=== PATIENT | female | born 1930 | race Caucasian/White ===

== ENCOUNTER 2017-01-30 09:56 | Emergency (ER) | payer OTHER, MEDICAID ==
[~2017-01-30] VITALS: Ht 157.5 cm; Wt 53.1 kg
[~2017-01-30 09:56] MED LIST: BACL10TA PO; CELE100C PO; DEXL30CA3 PO; DIGO125T79 PO; DILT60TA3 PO; ESOM20CA PO; GLIM2TAB2 PO; GLIP5TAB13 PO; GLU500 PO; MAGN64TA11 PO; RIVA20TA PO; SITA100T7 PO
[2017-01-30 10:04] VITALS: BP_SYST 159
[2017-01-30 10:53] LABS: BASOPHILS % (AUTO) 0.6 % (0.0-2.0); EOSINOPHILS # (AUTO) 0.2 K/uL (0.0-0.4); EOSINOPHILS % (AUTO) 2.5 % (0.0-4.0); HEMOGLOBIN 11.9 g/dL (12.0-16.0); LYMPHOCYTES # (AUTO) 1.4 K/uL (1.0-5.5); LYMPHOCYTES % (AUTO) 21.6 % (20.5-51.5); MEAN CORPUSCULAR HEMOGLOBIN 28 pg (27-31); MEAN CORPUSCULAR HGB CONC 32 % (32-36); MEAN CORPUSCULAR VOLUME 87 fL (79.0-98.0); MONOCYTES # (AUTO) 0.6 K/uL (0.0-1.0); MONOCYTES % (AUTO) 9.2 % (1.7-9.3); NEUTROPHILS # (AUTO) 4.4 K/uL (1.8-7.7); NEUTROPHILS % (AUTO) 66.1 % (40.0-70.0); PLATELET COUNT (AUTO) 322 K/uL (130-430); RED BLOOD CELL COUNT(AUTO) 4.24 MIL/uL (4.2-6.2); RED CELL DISTRIBUTION WIDTH 12.3 % (9.0-15.0); WHITE BLOOD COUNT (AUTO) 6.6 K/uL (4.8-10.8)
[2017-01-30 11:04] LABS: ANION GAP 6 (5-15); CALCIUM 9.5 mg/dL (8.4-11.0); CHLORIDE 103 mmol/L (98-107); CREATININE 1.03 mg/dL (0.55-1.30); GLUCOSE 122 mg/dL (70-99); INR 1.1 (0.8-1.2); POTASSIUM 3.9 mmol/L (3.5-5.1); PROTHROMBIN TIME 11.6 SECS (9.5-12.5); SODIUM SERUM 139 mmol/L (136-145); UREA NITROGEN, BLOOD 16 mg/dL (8-21)
[2017-01-30 11:08] LABS: ALANINE AMINOTRANSFERASE 26 U/L (12-78); ALBUMIN 3.7 g/dL (3.4-4.8); ASPARTATE AMINOTRANSFERASE 21 U/L (10-37); TOTAL BILIRUBIN 0.3 mg/dL (0.0-1.0)
[2017-01-30 11:10] LABS: ALCOHOL, BLOOD < 3 mg/dL (<10)
[2017-01-30 11:12] LABS: BILIRUBIN,URINE NEGATIVE (NEGATIVE); CLARITY/URINE CLEAR (CLEAR); COLOR,URINE YELLOW (YELLOW); GLUCOSE,URINE NEGATIVE (NEGATIVE); KETONES,URINE NEGATIVE (NEGATIVE); LEUKOCYTE ESTERASE ,URINE NEGATIVE (NEGATIVE); NITRITE, URINE NEGATIVE (NEGATIVE); PROTEIN URINE NEGATIVE (NEGATIVE); UROBILINOGEN,URINE 0.2 (0.2-1.0)
[2017-01-30 11:13] LABS: BLOOD, URINE TRACE (NEGATIVE)
[2017-01-30 11:23] LABS: BARBITURATE, URINE NEGATIVE (NEG <=200); BENZODIAZEPINE, URINE NEGATIVE (NEG <=150); CANNABINOID, URINE NEGATIVE (NEG <=50); COCAINE, URINE NEGATIVE (NEG <=150); METHAMPHETAMINES SCREEN,URINE NEGATIVE (NEG <=500); URINE AMPHETAMINE NEGATIVE (NEG <=500); URINE METHADONE NEGATIVE (NEG <=200)
[2017-01-30 11:24] LABS: BACTERIA,URINE None Seen /HPF (None Seen); OPIATE, URINE NEGATIVE (NEG <=100); PHENCYCLIDINE SCREEN,URINE NEGATIVE (NEG <=25); UR TRICYCLIC ANTIDEPRESSANTS NEGATIVE (NEG <=300); URINE OXYCODONE SCREEN NEGATIVE (NEG <=100); URINE PROPOXYPHENE SCREEN NEGATIVE (NEG <=300); WBC,URINE NONE SEEN /HPF (0-3)
[2017-01-30 12:17] VITALS: BP_SYST 140
== END 2017-01-30 12:17 | disposition home or self-care (01) ==
LOC: SED 09:56
DX: F41.9 Anxiety disorder, unspecified (principal); I10 Essential (primary) hypertension; K21.9 Gastro-esophageal reflux disease without esophagitis; E11.9 Type 2 diabetes mellitus without complications; Z79.899 Other long term (current) drug therapy
CPT/HCPCS: 36415; 71010; 74000; 80053; 80307; 81000; 82140; 82962; 83605; 83880; 84439; 84484; 85025; 85610; 87040; 93005; 99285; G0482

== ENCOUNTER 2019-01-27 19:43 | Emergency (ER) | payer OTHER, MEDICAID ==
[~2019-01-27] VITALS: Ht 175.3 cm; Wt 55.3 kg
[~2019-01-27 19:43] MED LIST changes: -MAGN64TA11 PO; +SITA100T11 PO; -SITA100T7 PO; +SLOW-MAG64 M1 PO
[2019-01-27 19:50] VITALS: BP_SYST 115
--- NOTE | 2019-01-27 20:56 | NUR ---
Pt BIB daughter with c/o left foot and ankle pain and swelling since this morning upon awakening. Pt denies recent injury or trauma to foot. No obvious deformity noted.
--- NOTE | 2019-01-27 20:56 | NUR ---
Kusum french in [facility] - 01/27/19 at 2056 by [email or web address] Pt wheeled to bed 1 for evaluation
--- NOTE | 2019-01-27 20:56 | NUR ---
Pt wheeled to bed 1 for evaluation
--- NOTE | 2019-01-27 21:23 | NUR ---
Dr. Claudio at bedside.
--- NOTE | 2019-01-27 21:50 | NUR ---
Lab at bedside.
[2019-01-27 22:14] LABS: BASOPHILS % (AUTO) 0.2 % (0.0-2.0); EOSINOPHILS # (AUTO) 0.1 K/uL (0.0-0.4); EOSINOPHILS % (AUTO) 1.1 % (0.0-4.0); HEMATOCRIT 32.4 % (36-48); HEMOGLOBIN 10.8 g/dL (12.0-16.0); LYMPHOCYTES % (AUTO) 24.3 % (20.5-51.5); MEAN CORPUSCULAR HEMOGLOBIN 30 pg (27-31); MEAN CORPUSCULAR HGB CONC 33 % (32-36); MEAN CORPUSCULAR VOLUME 89 fL (79.0-98.0); MONOCYTES # (AUTO) 1.3 K/uL (0.0-1.0); MONOCYTES % (AUTO) 16.5 % (1.7-9.3); NEUTROPHILS # (AUTO) 4.7 K/uL (1.8-7.7); NEUTROPHILS % (AUTO) 57.9 % (40.0-70.0); PLATELET COUNT (AUTO) 250 K/uL (130-430); RED BLOOD CELL COUNT(AUTO) 3.64 MIL/uL (4.2-6.2); RED CELL DISTRIBUTION WIDTH 14.7 % (9.0-15.0); WHITE BLOOD COUNT (AUTO) 8.1 K/uL (4.8-10.8)
[2019-01-27 22:21] LABS: ALANINE AMINOTRANSFERASE 16 U/L (12-78); ALBUMIN 3.3 g/dL (3.4-4.8); ANION GAP 1 (5-15); ASPARTATE AMINOTRANSFERASE 14 U/L (10-37); CALCIUM 8.9 mg/dL (8.4-11.0); CHLORIDE 104 mmol/L (98-107); GLUCOSE 194 mg/dL (70-99); SODIUM SERUM 137 mmol/L (136-145); TOTAL BILIRUBIN 0.3 mg/dL (0.0-1.0); UREA NITROGEN, BLOOD 21 mg/dL (8-21)
[2019-01-27 23:14] VITALS: BP_SYST 125
--- NOTE | 2019-01-27 23:14 | NUR ---
Patient given written and verbal discharge instructions and verbalizes understanding. ER MD discussed with patient the results and treatment provided. Patient in stable condition. ID arm band removed. Rx of Ibuprofen given. Patient educated on pain management and to follow up with PMD. Pain Scale 1/10. Opportunity for questions provided and answered. Medication side effect fact sheet provided.
== END 2019-01-27 23:14 | disposition home or self-care (01) ==
LOC: SED 19:43
DX: S93.402A Sprain of unspecified ligament of left ankle, initial encounter (principal); I48.91 Unspecified atrial fibrillation; K21.9 Gastro-esophageal reflux disease without esophagitis; E11.9 Type 2 diabetes mellitus without complications; I10 Essential (primary) hypertension; Z79.899 Other long term (current) drug therapy
CPT/HCPCS: 36415; 80053; 85025; 93971; 99284

== ENCOUNTER 2019-03-16 06:44 | Inpatient (IN) | payer OTHER, MEDICAID ==
[~2019-03-16] VITALS: Ht 157.5 cm; Wt 54.9 kg
[2019-03-16 06:50] VITALS: BP_SYST 139
--- NOTE | 2019-03-16 06:58 | NUR ---
Patient to ER bed 7 to gown for evaluation. Side rails up. Report given to DAYSHIFT .
--- NOTE | 2019-03-16 07:24 | NUR ---
PATIENT CAME IN COMPLAINING OF PAIN IN RIGHT GROIN THAT STARTED ABOUT 0230 THIS MORNING WHEN PT WENT TO USE RESTROOM. PT COMPLAINING OF 10/10 PAIN BUT UNABLE TO DECRIBE IT. PT STATES IT RADIATES TO BACK AND CHEST. PT STATES IT HAS BEEN PROGRESSIVLY BEEN GETTING WORST SINCE 0230 AND WORST WHEN SHE MOVES. PT DENIES TRAUMA. PT DENIES TAKING ANY MEDICATION TODAY. PT ALERT AND ORIENTED X4. PT DENIES SOB. DAUGHTER AT BEDSIDE. WILL CONTINUE TO MONITOR.
--- NOTE | 2019-03-16 07:55 | NUR ---
ER Dr. BETANCOURT at bedside examining patient.
[2019-03-16] MEDS ORDERED: MORPHINE 2 MG/ML INJ. SYRINGE IVP ONE (08:15)
[2019-03-16] MEDS ORDERED: NS 500 ML IV ONE (08:15)
--- NOTE | 2019-03-16 08:15 | NUR ---
# 20 gauge angiocath placed to LEFT AC. Use of asceptic technique. Opsite placed over site. Blood return noted. Blood for lab drawn from site. Flushed with 10 cc of normal saline. No evidence of infiltration noted. Patient tolerated well.
--- NOTE | 2019-03-16 08:20 | NUR ---
X RAY AT BEDSIDE.
[2019-03-16 08:34] LABS: BASOPHILS % (AUTO) 0.3 % (0.0-2.0); EOSINOPHILS # (AUTO) 0.1 K/uL (0.0-0.4); EOSINOPHILS % (AUTO) 0.9 % (0.0-4.0); HEMATOCRIT 34.7 % (36-48); HEMOGLOBIN 11.5 g/dL (12.0-16.0); LYMPHOCYTES # (AUTO) 1.2 K/uL (1.0-5.5); MEAN CORPUSCULAR HEMOGLOBIN 29 pg (27-31); MEAN CORPUSCULAR HGB CONC 33 % (32-36); MEAN CORPUSCULAR VOLUME 88 fL (79.0-98.0); MONOCYTES # (AUTO) 1.3 K/uL (0.0-1.0); MONOCYTES % (AUTO) 10.5 % (1.7-9.3); NEUTROPHILS # (AUTO) 9.5 K/uL (1.8-7.7); NEUTROPHILS % (AUTO) 78.3 % (40.0-70.0); PLATELET COUNT (AUTO) 292 K/uL (130-430); RED BLOOD CELL COUNT(AUTO) 3.93 MIL/uL (4.2-6.2); RED CELL DISTRIBUTION WIDTH 14.3 % (9.0-15.0); WHITE BLOOD COUNT (AUTO) 12.2 K/uL (4.8-10.8)
--- NOTE | 2019-03-16 08:34 | NUR ---
PT LEAVING TO CT VIA GURNEY IN STABLE CONDITION.
[2019-03-16 08:50] LABS: ANION GAP 6 (5-15); CALCIUM 9.2 mg/dL (8.4-11.0); CHLORIDE 102 mmol/L (98-107); CREATININE 0.81 mg/dL (0.55-1.30); GLUCOSE 197 mg/dL (70-99); POTASSIUM 4.7 mmol/L (3.5-5.1); SODIUM SERUM 136 mmol/L (136-145); UREA NITROGEN, BLOOD 19 mg/dL (8-21)
--- NOTE | 2019-03-16 08:51 | NUR ---
PT BACK FROM CT IN STABLE CONDITION.
[2019-03-16 08:52] LABS: INR 1.2 (0.8-1.2); PROTHROMBIN TIME 12.2 SECS (9.5-12.5)
[2019-03-16 08:56] LABS: ALANINE AMINOTRANSFERASE 18 U/L (12-78); ALBUMIN 3.9 g/dL (3.4-4.8); ASPARTATE AMINOTRANSFERASE 35 U/L (10-37); TOTAL BILIRUBIN 0.6 mg/dL (0.0-1.0)
--- NOTE | 2019-03-16 09:40 | NUR ---
PT STATES PAIN DOING BETTER AFTER PAIN MEDS.
[2019-03-16 10:23] LABS: BILIRUBIN,URINE NEGATIVE (NEGATIVE); BLOOD, URINE 1+ (NEGATIVE); CLARITY/URINE CLEAR (CLEAR); COLOR,URINE YELLOW (YELLOW); GLUCOSE,URINE TRACE (NEGATIVE); KETONES,URINE NEGATIVE (NEGATIVE); LEUKOCYTE ESTERASE ,URINE NEGATIVE (NEGATIVE); NITRITE, URINE NEGATIVE (NEGATIVE); PROTEIN URINE 1+ (NEGATIVE); UROBILINOGEN,URINE 0.2 (0.2-1.0)
[2019-03-16 10:27] LABS: BACTERIA,URINE FEW /HPF (None Seen); WBC,URINE 0-3 /HPF (0-3)
[2019-03-16] MEDS ORDERED: INSULIN LISPRO SLIDING SCALE 100 UNITS/ML VIAL (humaLOG) SUBCUT PRN (11:45)
[2019-03-16] MEDS ORDERED: GLUCOSE 15 GM GEL (in 37.5 GM TUBE) PO PRN (11:45)
[2019-03-16] MEDS ORDERED: D5W 1,000 ML IV PRN (11:45)
[2019-03-16] MEDS ORDERED: DEXTROSE 50%-WATER 50 ML DISP.SYRIN IVP PRN (11:45)
--- NOTE | 2019-03-16 11:45 | NUR ---
Patient will be admitted to care of DR. STRINGER. Admitted to TELE unit. Belongings list completed. Summary report printed. Report will be given at bedside. Waiting for tele bed.
[2019-03-16] MEDS ORDERED: NITR0.4T47 SL (11:48)
[2019-03-16] MEDS ORDERED: LIRA0.6P SQ (11:48)
[2019-03-16] MEDS ORDERED: ESCI5TAB12 PO (11:48)
[2019-03-16] MEDS ORDERED: LIP10 PO (11:48)
[2019-03-16] MEDS ORDERED: BACL10TA PO (11:48)
--- NOTE | 2019-03-16 11:48 | NUR ---
Medication reconciliation completed with information provided by DAUGHTER. Any prior medication reconciliation on file was reviewed and corrected.
--- NOTE | 2019-03-16 12:12 | NUR ---
PT HAD TO USE REST ROOM. PT ASSISTED WITH BED AVILA. PT POSITIONED FOR COMFORT. WILL CONTINUE TO MONITOR.
--- NOTE | 2019-03-16 12:30 | NUR ---
SPOKE TO PT AND DAUGHTER ABOUT END OF LIFE CARE. DAUGHTER STATES PT FULL CODE FOR NOW AND THEY WILL HAVE DISCCUSION ABOUT IT LATER.
--- NOTE | 2019-03-16 12:35 | NUR ---
Transfer to TELE via ACLS protocol. Licensed nurse present. IV present no signs or symptoms of infiltration.
--- NOTE | 2019-03-16 12:42 | NUR ---
REPORT GIVEN TO NAHUM RN AT BEDSIDE.
[2019-03-16 12:44] VITALS: BP_SYST 147
--- NOTE | 2019-03-16 12:44 | NUR ---
ADMISSION NOTE Received patient from ER via woo, received report from JENNIFER SALAZAR. Patient admitted with diagnosis of REFRACTORY RIGHT HIP PAIN, A FIB, DIABETES. Patient oriented to hospital routine, call light, toileting and safety-patient verbalized understanding.
[2019-03-16] MEDS ORDERED: HYDROcodone/ACETAMIN 5-325 MG TAB (NORCO/ VICODIN) PO PRN (13:00)
--- NOTE | 2019-03-16 13:04 | NUR ---
Ortho consult called: for Dr. Angel, regarding right hip pain, ordered by Dr. Sanchez, spoke with Kell.
[2019-03-16] MEDS ORDERED: ONDANSETRON HCL 4 MG/2 ML VIAL IVP PRN (13:15)
[2019-03-16] MEDS ORDERED: DIGOXIN 0.125 MG TABLET PO ONE (13:15)
[2019-03-16] MEDS ORDERED: PANTOPRAZOLE SODIUM 40 MG TAB PO ONE (13:15)
[2019-03-16] MEDS ORDERED: BACLOFEN 10 MG TABLET PO ONE (13:15)
[2019-03-16] MEDS ORDERED: DILTIAZEM HCL 240 MG CAP.SR.24H PO ONE (13:30)
[2019-03-16] MEDS ORDERED: RIVAROXABAN 10 MG TABLET PO ONE (13:30)
[2019-03-16] MEDS: MORPHINE 2 MG/ML INJ. SYRINGE IVP PRN ×2 (13:37→22:18)
--- NOTE | 2019-03-16 13:52 | NUR ---
continuation of care Patient is awake and alert sitting up in bed. Patients daughter is at bed side. Patient complains of pain, medicated per order. Patients scheduled medication also given as ordered. Patient and family educated on side effects and to use call light for assistance. Call light is with patient. patients breathing is equal and nonlabored. Patient has no other needs at this time. will continue to monitor. Patient given lunch tray.
--- NOTE | 2019-03-16 14:49 | NUR ---
VOID PATIENT PLACED ON AND OFF BEDPAN. PATIENT VOIDED MODERATE AMOUNT, LIGHT YELLOW URINE. PATIENT'S DAUGHTER STATES SHE IS GOING TO RUN HOME GRAB A COUPLE THINGS AND EAT AND WILL RETURN LATER TODAY. STATES PATIENT HAS CELL PHONE WE CAN CALL DAUGHTER IF PATIENT NEEDS ANYTHING. PATIENT HAS CALL LIGHT WITH HER EDUCATED TO USE FOR ASSISTANCE. PATIENT HAS ALL SAFETY PRECAUTIONS IN PLACE.NO OTHER NEEDS AT THIS TIME WILL CONTINUE TO MONITOR.
[2019-03-16 16:21] VITALS: BP_SYST 145
--- NOTE | 2019-03-16 16:29 | NUR ---
vital signs Patient is awake and alert, sitting up in bed no signs of any distress, breathing is equal and non labored. Patient has family at bed side. Patient has all safety precautions in place. call light is with patient no other needs at this time. vital sings done.
[2019-03-16] MEDS: metFORMIN HCL 500 MG TABLET PO SCH (17:46)
[2019-03-16] MEDS: CITALOPRAM HYDROBROMIDE 20 MG TABLET PO SCH (17:51)
[2019-03-16] MEDS: INSULIN LISPRO SLIDING SCALE 100 UNITS/ML VIAL (humaLOG) SUBCUT PRN ×2 (17:53→20:13)
[2019-03-16] MEDS ORDERED: NON-FORMULARY MEDICATION (Escitalopram Oxalate 5 MG) PO SCH (18:00)
--- NOTE | 2019-03-16 18:43 | NUR ---
rn closing note Patient is awake and alert laying in bed no signs of any distress, breathing is equal and non labored. Patient just finished having XR done. Patient has family at bed side. is at bedside. Patient has no complaints at this time. All safety precautions in place.Call light is with patient. educated patient and family to use call light for assistance.
--- NOTE | 2019-03-16 19:50 | NUR ---
PM SHIFT ASSESSMENT Received patient lying in bed, aox3, on room air, denies any pain or discomfort at this time, family at bedside, plan of care discussed with patient and family, all verbalized understanding, compliant, oriented to use call light for nurse assistance, fall and safety measures in place.
[2019-03-16 20:06] VITALS: BP_SYST 163
[2019-03-16] MEDS: BACLOFEN 10 MG TABLET PO SCH (20:12)
[2019-03-16] MEDS: ACETAMINOPHEN 325 MG TABLET PO PRN (20:12)
--- NOTE | 2019-03-16 21:21 | NUR ---
MED PASS Patient has slight temperature, cooling measures provided, tylenol 650 mg po given, will recheck temp, blood sugar check this pm of 272, covered with insulin per md sliding scale. Patient assisted with bedpan, hygiene care provided, daughter at bedside.
--- NOTE | 2019-03-16 22:11 | NUR ---
RN ROUNDS Patient awake, denies any pain or discomfort at this time, eating HS snack, rechecked temperature, wnl, daughter remains at bedside, call light within reach, safety measures in place, will monitor.
--- NOTE | 2019-03-16 22:45 | NUR ---
PAIN Patient c/o of right leg pain, medicated with morphine 1 mg IVP for pain management, educated on side effects and fall precautions, patient and daughter verbalized understanding, vital signs stable, call light within reach, will reassess patient's pain level shortly.
--- NOTE | 2019-03-17 00:17 | NUR ---
RN ROUNDS Patient resting quietly in bed, breathing is even and unlabored, vital signs stable, daughter remains at bedside, call light within reach, will monitor.
[2019-03-17 00:52] VITALS: BP_SYST 134
--- NOTE | 2019-03-17 02:17 | NUR ---
RN ROUNDS Patient asleep, breathing is even and unlabored, daughter remains at bedside, saftey precautions in place, call light within reach, will monitor.
--- NOTE | 2019-03-17 04:05 | NUR ---
RN ROUNDS Patient continues to sleep, breathing is even and unlabored, daughter remains at bedside, safety precautions in place, call light within reach, will monitor.
[2019-03-17] MEDS: INSULIN LISPRO SLIDING SCALE 100 UNITS/ML VIAL (humaLOG) SUBCUT PRN ×4 (06:17→20:55)
[2019-03-17] MEDS: MORPHINE 2 MG/ML INJ. SYRINGE IVP PRN (06:28)
--- NOTE | 2019-03-17 06:35 | NUR ---
RN ROUNDS Patient awake, c/o of pain to right leg, medicated with morphine 1 mg IVP for pain management, reinforced safety precautions, repositioned for comfort, blood sugar check this am of 182, covered with insulin per md sliding scale, needs attended to, fall and safety measures maintained, will continue to monitor until report given to am nurse.
[2019-03-17 08:00] VITALS: BP_SYST 126
--- NOTE | 2019-03-17 08:00 | NUR ---
PT IS AWAKE, ALERT AND ORIENTED X4, IN RA, NO SOB, AFIB ON MARKET RESEARCHER, COMPLAINED ON INTERMITTENT PAIN WHEN MOVING RIGHT LEG, WEAKNESS ON BILATERAL LOWER LEGS, IV SL ON LAC, IV INTACT AND PATENT, PT'S DTR AT BEDSIDE, REVIEWED PLAN OF CARE, CALL LIGHT WITHIN REACH
[2019-03-17] MEDS: metFORMIN HCL 500 MG TABLET PO SCH ×2 (08:10→17:25)
[2019-03-17] MEDS: DIGOXIN 0.125 MG TABLET PO SCH (09:10)
[2019-03-17] MEDS: BACLOFEN 10 MG TABLET PO SCH ×2 (09:10→20:53)
[2019-03-17] MEDS: PANTOPRAZOLE SODIUM 40 MG TAB PO SCH (09:12)
[2019-03-17] MEDS: DILTIAZEM HCL 240 MG CAP.SR.24H PO SCH (09:12)
--- NOTE | 2019-03-17 10:06 | NUR ---
Nutrition Update Jose Scale 18 noted. Pt admitted for refractory R hip pain, atr fibr. Diet: [facility] BMI: 22.1 kg/m2 RD to follow per nutrition care standards.
[2019-03-17] MEDS: RIVAROXABAN 20 MG TABLET PO SCH (10:07)
--- NOTE | 2019-03-17 10:30 | NUR ---
RN RNDS ASSISTED PT TO BATHROOM, PT USED WALKER ON AMBULATION, WEAKNESS ON BILATERAL LOWER LEGS, GAIT NOT STABLE.
--- NOTE | 2019-03-17 12:00 | NUR ---
PT IS STABLE, NO SOB, PT'S 3RD SON ON BEDSIDE, CALL LIGHT WITHIN REACH
[2019-03-17 12:25] VITALS: BP_SYST 137
[2019-03-17 16:30] VITALS: BP_SYST 131
[2019-03-17] MEDS: CITALOPRAM HYDROBROMIDE 20 MG TABLET PO SCH (16:59)
[2019-03-17] MEDS ORDERED: MILK OF MAGNESIA 30 ML UDC PO ONE (17:15)
--- NOTE | 2019-03-17 17:30 | NUR ---
PT'S DTR ASSISTED PT TO USE BSC TO HAVE A BOWEL MOVEMENT, WILL CONTINUE TO MONITOR
--- NOTE | 2019-03-17 18:47 | NUR ---
Paged Dr. Sanchez s/w Calli
--- NOTE | 2019-03-17 19:20 | NUR ---
OPENING NOTES Received patient from AM nurse. Patient alert, oriented, daughter at the bedside. No signs of respiratory distress. No SOB. Denies pain and discomfort at this time. Bed is locked and lowest position. Safety Precaution in place. Patient and Daughter educated on proper use of call light, encourage to use call light when needed for assistance, patient and daughter verbalized understanding, and demonstrated back proper use of call light. Bedside commode in place. Patient refused bed alarm at this time, patient and patient's daughter educated on its purpose and its benefits, but still refused, will continue to encourage throughout shift. Patient's daughter stated that she will be at bedside with the patient all night.
[2019-03-17 20:15] VITALS: BP_SYST 123
--- NOTE | 2019-03-17 20:52 | NUR ---
BS CHECK BS 281. Humalog 6 units is given per MD order. Patients daughter at the bed side. Needs met and attended. Patient has no signs of respiratory distress. Will continue to monitor
[2019-03-17] MEDS: DOCUSATE SODIUM 250 MG CAPSULE PO SCH (20:53)
--- NOTE | 2019-03-18 | NUR ---
RN ROUNDS Patient is asleep, daughter sleeping in the bed side. Patient has no signs of respiratory distress. Will continue to monitor.
[2019-03-18 00:33] VITALS: BP_SYST 148
--- NOTE | 2019-03-18 02:00 | NUR ---
RN ROUNDS Patient is asleep, daughter sleeping in the bed side. Patient has no signs of respiratory distress. NO SOB, no signs of discomfort at this time. Will continue to monitor.
--- NOTE | 2019-03-18 04:01 | NUR ---
RN ROUNDS Patient is asleep, daughter sleeping in the bed side. Patient has no signs of respiratory distress. NO SOB, no signs of discomfort at this time. Bed in locked and lowest position. Will continue to monitor.
[2019-03-18] MEDS: MORPHINE 2 MG/ML INJ. SYRINGE IVP PRN (06:14)
[2019-03-18] MEDS: INSULIN LISPRO SLIDING SCALE 100 UNITS/ML VIAL (humaLOG) SUBCUT PRN ×4 (06:17→21:09)
--- NOTE | 2019-03-18 06:44 | NUR ---
CLOSING NOTES Patient in bed, sleeping at this time. No s/s of acute distress noted. Breathing even and unlabored. IV site patent, no signs of infiltration or infection noted. HOB raised. Patient's daughter present at bedside. All needs met throughout shift. Fall and safety precautions maintained throughout shift. Will continue to monitor until patient care is endorsed to oncoming dayshift nurse.
--- NOTE | 2019-03-18 07:31 | NUR ---
Opening Note received bedside SBAR report from manufacturer agent RN, patient resting in bed, respirations even and unlabored on room air, patient reports pain is controlled at this time, no acute distress noted, patients daughter at bedside, room close to nurses station, educated patient on use of call light and asked to call for assistance, patient verbalized understanding, call light in reach, bed in low and locked position, bed alarm on.
[2019-03-18 08:00] VITALS: BP_SYST 163
[2019-03-18] MEDS: PANTOPRAZOLE SODIUM 40 MG TAB PO SCH (08:24)
[2019-03-18] MEDS: BACLOFEN 10 MG TABLET PO SCH (08:24)
[2019-03-18] MEDS: DILTIAZEM HCL 240 MG CAP.SR.24H PO SCH (08:24)
[2019-03-18] MEDS: DOCUSATE SODIUM 250 MG CAPSULE PO SCH ×3 (08:24→21:07)
[2019-03-18] MEDS: DIGOXIN 0.125 MG TABLET PO SCH (08:25)
[2019-03-18] MEDS: metFORMIN HCL 500 MG TABLET PO SCH ×2 (08:25→17:11)
[2019-03-18] MEDS: RIVAROXABAN 20 MG TABLET PO SCH (08:28)
--- NOTE | 2019-03-18 09:50 | NUR ---
RN Rounds patient resting in bed, patient reports pain is controlled, no acute distress noted, patients daughter at bedside.
[2019-03-18 11:32] VITALS: BP_SYST 130
--- NOTE | 2019-03-18 11:43 | NUR ---
RN Rounds patient sitting up in bed, no acute distress noted, patient reports pain is controlled, patients daughter at bedside.
[2019-03-18] MEDS ORDERED: DOCUSATE SODIUM 250 MG CAPSULE PO ONE (13:45)
[2019-03-18] MEDS ORDERED: MILK OF MAGNESIA 30 ML UDC PO PRN ×2 (13:45)
--- NOTE | 2019-03-18 13:47 | NUR ---
Bedpan patient requesting to use bedpan, assisted patient to use bedpan, voided x1, patient resting in bed, patients family at bedside.
[2019-03-18] MEDS: ACETAMINOPHEN 325 MG TABLET PO PRN ×2 (14:46→21:07)
[2019-03-18] MEDS: GABAPENTIN 100 MG CAPSULE PO SCH ×2 (14:46→21:07)
--- NOTE | 2019-03-18 14:46 | NUR ---
Temperature patients oral temperature 101.1, PRN tylenol indicated, educated patient and patients family on use and side effects of PRN tylenol, patient and patients family verbalized understanding, patient tolerated medication administration well.
--- NOTE | 2019-03-18 15:05 | NUR ---
Case mgt: Rec'd dc plan order for TCU at [facility] ([facility])--I faxed referral to them at fax#[phone]--shandra Emerson--#[phone]--HUAN RN Addendum: 03/18/19 at 1624 by Jerilyn Lin RN Case Mgt. I called Ki at [facility] TCU-he rec'd referral and requested us to call him at 1:00pm tomorrow and his DON Vimal will have reviewed the case to see if pt accepted. HUAN SALAZAR
[2019-03-18 15:18] VITALS: BP_SYST 153
--- NOTE | 2019-03-18 16:43 | NUR ---
PAGED DR ESTRADA
--- NOTE | 2019-03-18 16:45 | NUR ---
Temperature patient oral temperature 100.0 at this time, patient reports pain is controlled, no acute distress noted, patients family at bedside.
--- NOTE | 2019-03-18 16:50 | NUR ---
Spoke with Physician spoke with Dr. Mata, informed him that patient was given tylenol 650mg at 1446 for fever and that current temp is 100.0, new orders received, verified with read back.
[2019-03-18] MEDS: METHOCARBAMOL 500 MG TABLET PO SCH ×2 (17:09→21:06)
[2019-03-18] MEDS: CITALOPRAM HYDROBROMIDE 20 MG TABLET PO SCH (17:11)
[2019-03-18] MEDS: cefTRIAXone 1 GM in D5W 50 ML IV SCH (17:22)
[2019-03-18 18:04] VITALS: BP_SYST 129
--- NOTE | 2019-03-18 18:05 | NUR ---
RN Rounds patient resting in bed, patient denies any pain, no acute distress noted, see vital sign flow sheet for vital signs, patients family at bedside.
--- NOTE | 2019-03-18 19:09 | NUR ---
Closing Note bedside SBAR report given to receiving RN, patient resting in bed, no acute distress noted, patient reports pain is controlled, patients daughter at bedside, room close to nurses station, educated patient on use of call light and asked to call for assistance, patient verbalized understanding, call light in reach, bed in low and locked position, bed alarm on, care endorsed to hotel night auditor RN.
--- NOTE | 2019-03-18 19:15 | NUR ---
OPENING NOTES Patient alert oriented x4 with family at the bedside. No signs of respiratory distress. Denies discomfort at this time. Skin intact. Bed locked and in lowest position. Call light within reach. Encourage patient to use call light when assistance needed, patient demonstrated back the proper use of call light.
--- NOTE | 2019-03-18 21:07 | NUR ---
MED PASS/BED NAJERA Due Meds given at this time. Patient verbalized 3/10 pain in the right ankle. PRN pain medication is given per MD ordered. Assisted patient with bed najera. Patient voided. Patient tolerated well.
--- NOTE | 2019-03-18 23:00 | NUR ---
RN ROUNDS Patient is asleep. No signs of discomfort noted at this time. No signs of acute respiratory distress, breathing even and unlabored. Safety precautions in place. Will continue to monitor.
[2019-03-19 00:13] VITALS: BP_SYST 138
--- NOTE | 2019-03-19 01:00 | NUR ---
BED NAJERA Assisted patient with bed najera. Voided. Patient tolerated well. Magalis care done by RN. All needs met and attended. Safety precaution in place. Will continue to monitor.
--- NOTE | 2019-03-19 05:25 | NUR ---
RN ROUNDS Patient is still asleep. No signs of discomfort noted at this time. No signs of acute respiratory distress, breathing even and unlabored. Safety precautions in place. Will continue to monitor.
[2019-03-19] MEDS: MORPHINE 2 MG/ML INJ. SYRINGE IVP PRN ×2 (06:06→20:36)
[2019-03-19] MEDS: INSULIN LISPRO SLIDING SCALE 100 UNITS/ML VIAL (humaLOG) SUBCUT PRN ×4 (06:08→20:30)
--- NOTE | 2019-03-19 06:50 | NUR ---
CLOSING NOTES Patient is asleep at this time. No signs of discomfort noted. IV site patent, no signs of infiltration, no infection noted. HOB raised. Breathing even and unlabored, no signs of respiratory distress. No signs of hypoglycemia, skin warm and dry to touch. Afebrile. All needs met throughout the shift. Fall and safety precaution in place. Will continue to monitor until patient care is endorse to oncoming day shift nurse.
[2019-03-19 07:11] LABS: BASOPHILS % (AUTO) 0.1 % (0.0-2.0); EOSINOPHILS % (AUTO) 0.2 % (0.0-4.0); HEMATOCRIT 31.6 % (36-48); HEMOGLOBIN 10.5 g/dL (12.0-16.0); LYMPHOCYTES # (AUTO) 1.2 K/uL (1.0-5.5); LYMPHOCYTES % (AUTO) 9.6 % (20.5-51.5); MEAN CORPUSCULAR HEMOGLOBIN 30 pg (27-31); MEAN CORPUSCULAR HGB CONC 33 % (32-36); MEAN CORPUSCULAR VOLUME 89 fL (79.0-98.0); MONOCYTES # (AUTO) 1.6 K/uL (0.0-1.0); MONOCYTES % (AUTO) 13.5 % (1.7-9.3); NEUTROPHILS # (AUTO) 9.2 K/uL (1.8-7.7); NEUTROPHILS % (AUTO) 76.6 % (40.0-70.0); PLATELET COUNT (AUTO) 258 K/uL (130-430); RED BLOOD CELL COUNT(AUTO) 3.55 MIL/uL (4.2-6.2); RED CELL DISTRIBUTION WIDTH 14.3 % (9.0-15.0)
[2019-03-19 07:32] LABS: ANION GAP 6 (5-15); CHLORIDE 99 mmol/L (98-107); GLUCOSE 252 mg/dL (70-99); POTASSIUM 4.6 mmol/L (3.5-5.1); SODIUM SERUM 131 mmol/L (136-145)
[2019-03-19 07:59] LABS: CREATININE 0.93 mg/dL (0.55-1.30); UREA NITROGEN, BLOOD 19 mg/dL (8-21)
[2019-03-19 08:00] VITALS: BP_SYST 141
--- NOTE | 2019-03-19 08:00 | NUR ---
RN OPENING NOTE patient is resting in bed. ALERT ORIENTED X4. patient was assessed, vital signs are stable.., will continue to monitor and will pass the med , bed at low position and call light within reach bed alarm is on
[2019-03-19 08:52] LABS: CALCIUM 8.5 mg/dL (8.4-11.0)
[2019-03-19] MEDS: PANTOPRAZOLE SODIUM 40 MG TAB PO SCH (09:05)
[2019-03-19] MEDS: DOCUSATE SODIUM 250 MG CAPSULE PO SCH ×4 (09:06→20:26)
[2019-03-19] MEDS: GABAPENTIN 100 MG CAPSULE PO SCH ×3 (09:06→20:25)
[2019-03-19] MEDS: DILTIAZEM HCL 240 MG CAP.SR.24H PO SCH (09:07)
[2019-03-19] MEDS: METHOCARBAMOL 500 MG TABLET PO SCH ×4 (09:07→20:24)
[2019-03-19] MEDS: metFORMIN HCL 500 MG TABLET PO SCH ×2 (09:07→17:32)
[2019-03-19] MEDS: DIGOXIN 0.125 MG TABLET PO SCH (09:09)
[2019-03-19] MEDS: RIVAROXABAN 20 MG TABLET PO SCH (09:10)
--- NOTE | 2019-03-19 10:00 | NUR ---
RN NOTE PATIENT WAS GIVEN HER MEDICATIONS.
[2019-03-19 12:00] VITALS: BP_SYST 134
--- NOTE | 2019-03-19 12:00 | NUR ---
RN NOTE PATIENT IS RESTING IN BED, PATIENT WAS EDUCATED ABOUT FALL PREVENTION. PATIENT BLOOD SUGAR WAS MEASURED AND WAS COVERED WITH LISPRO. WILL CONTINUE TO MONITOR.
--- NOTE | 2019-03-19 13:43 | NUR ---
Discharge Planning: ISACC followed up With TCU at [facility] [phone], spoke with shabbir Masters and she will be checking and reviewing if patient was accepted. NIRANJANP relayed information to be reached [phone], ISACC made Sonam after 3:30 use the same number and ask for charge nurse.
--- NOTE | 2019-03-19 14:00 | NUR ---
RN NOTE PATIENT IS RESTING IN BED. SLEEPY, DENIES PAIN OR DISCOMFORT.
--- NOTE | 2019-03-19 16:00 | NUR ---
RN NOTE PATIENT RESTING IN BED. NO ISSUE WILL CONTINUE TO MONITOR.
[2019-03-19 16:54] VITALS: BP_SYST 137
[2019-03-19] MEDS: cefTRIAXone 1 GM in D5W 50 ML IV SCH (16:55)
[2019-03-19] MEDS: CITALOPRAM HYDROBROMIDE 20 MG TABLET PO SCH (17:33)
--- NOTE | 2019-03-19 18:00 | NUR ---
RN OPENING NOTE PATIENT IS RESTING IN BED. DENIES PAIN OR DISCOMFORT. PATIENT WAS GIVEN HER MEDIATION AND COVERED FOR HER BLOOD SUGAR. WILL CONTINUE TO MONITOR AND WILL ENDORSE TO NEXT SHIFT.
--- NOTE | 2019-03-19 19:45 | NUR ---
OPENING NIGHTS NOTE receive report from AM nurse. Patient is awake, family at the bed side. No signs of respiratory distress. No signs of discomfort noted at this time. IV site patency noted. Skin warm and dry. Afebrile. No sings of hypoglycemia noted. Bed locked and lowest position. Bed alarm on. Call light within reach. Encourage to use the call light when assistance needed. Patient teach back and demonstrated to the proper use of call light. Will continue to monitor.
[2019-03-19 20:00] VITALS: BP_SYST 139
--- NOTE | 2019-03-19 21:00 | NUR ---
FEVER Family at bedside complained of patient feeling warmer. temperature taken at this time, 102 F. Cooling measures initiated, Tylenol will be administered per PRN order. Otherwise, all vital signs WNL. Will continue to monitor and re assess.
[2019-03-19] MEDS: ACETAMINOPHEN 325 MG TABLET PO PRN (21:06)
--- NOTE | 2019-03-19 23:00 | NUR ---
RN ROUNDS/VOID Patient assisted to void via bed najera. Patient tolerated well. Magalis care done by RN. NO respiratory distress. Denies pain and discomfort at this time. Reposition for comfort. Safety precaution in place. Will continue to monitor.
[2019-03-20 00:22] VITALS: BP_SYST 103
--- NOTE | 2019-03-20 01:00 | NUR ---
RN ROUNDS Patient is asleep, no signs of respiratory distress. Breathing even and unlabored. No signs of discomfort at this time. Safety precaution in place. Will continue to monitor.
--- NOTE | 2019-03-20 04:10 | NUR ---
RN ROUNDS Patient is asleep at this time. No signs of discomfort at this time. No respiratory distress. Breathing even and unlabored. Safety precaution in place. Will continue to monitor.
[2019-03-20] MEDS: INSULIN LISPRO SLIDING SCALE 100 UNITS/ML VIAL (humaLOG) SUBCUT PRN ×2 (06:12→22:22)
[2019-03-20] MEDS: MORPHINE 2 MG/ML INJ. SYRINGE IVP PRN ×2 (06:14→22:19)
--- NOTE | 2019-03-20 06:56 | NUR ---
CLOSING NOTES Patient is asleep at this time. No respiratory distress, no signs of discomfort. IV line patent. Skin warm and dry to touch. No signs of hypoglycemia. Safety and fall precaution maintained. All needs met throughout the shift. Will continue to monitor until patient care is endorse to oncoming AM nurse.
[2019-03-20 07:05] LABS: BASOPHILS % (AUTO) 0.2 % (0.0-2.0); EOSINOPHILS % (AUTO) 0.1 % (0.0-4.0); HEMATOCRIT 30.9 % (36-48); HEMOGLOBIN 10.5 g/dL (12.0-16.0); LYMPHOCYTES # (AUTO) 1.2 K/uL (1.0-5.5); LYMPHOCYTES % (AUTO) 11.7 % (20.5-51.5); MEAN CORPUSCULAR HEMOGLOBIN 30 pg (27-31); MEAN CORPUSCULAR HGB CONC 34 % (32-36); MEAN CORPUSCULAR VOLUME 88 fL (79.0-98.0); MONOCYTES # (AUTO) 1.5 K/uL (0.0-1.0); MONOCYTES % (AUTO) 14.1 % (1.7-9.3); NEUTROPHILS # (AUTO) 7.7 K/uL (1.8-7.7); NEUTROPHILS % (AUTO) 73.9 % (40.0-70.0); PLATELET COUNT (AUTO) 271 K/uL (130-430); RED BLOOD CELL COUNT(AUTO) 3.52 MIL/uL (4.2-6.2); RED CELL DISTRIBUTION WIDTH 14.1 % (9.0-15.0); WHITE BLOOD COUNT (AUTO) 10.4 K/uL (4.8-10.8)
[2019-03-20 07:26] LABS: ALANINE AMINOTRANSFERASE 12 U/L (12-78); ALBUMIN 2.3 g/dL (3.4-4.8); ANION GAP 6 (5-15); ASPARTATE AMINOTRANSFERASE 12 U/L (10-37); CHLORIDE 96 mmol/L (98-107); POTASSIUM 4.6 mmol/L (3.5-5.1); SODIUM SERUM 130 mmol/L (136-145); TOTAL BILIRUBIN 0.5 mg/dL (0.0-1.0); UREA NITROGEN, BLOOD 18 mg/dL (8-21)
[2019-03-20 07:41] LABS: GLUCOSE 204 mg/dL (70-99)
[2019-03-20 08:06] LABS: CALCIUM 8.6 mg/dL (8.4-11.0)
[2019-03-20 08:38] VITALS: BP_SYST 128
[2019-03-20] MEDS: DOCUSATE SODIUM 250 MG CAPSULE PO SCH ×3 (09:00→22:18)
[2019-03-20] MEDS: METHOCARBAMOL 500 MG TABLET PO SCH ×4 (09:00→22:18)
--- NOTE | 2019-03-20 09:05 | NUR ---
03/20/2019 0905 This patient is sitting up in bed eating. She is farsi primarily speaking. She is able to respond with her name when asked in Sami, denying pain. Food Preparation Worker will be requested when appropriate. Vital signs obtained: bp 128/73, ,HR 100, temp 98.2, 96%RA, Resp 20. Blood sugar 172. Labs reviewed for today. Albumin is 2.3. Na 130. Abnormals labs from yesterday noted: ESR 82.
[2019-03-20] MEDS: GABAPENTIN 100 MG CAPSULE PO SCH ×3 (10:18→22:18)
[2019-03-20] MEDS: RIVAROXABAN 10 MG TABLET PO SCH (10:20)
[2019-03-20] MEDS: DILTIAZEM HCL 240 MG CAP.SR.24H PO SCH (10:21)
[2019-03-20] MEDS: metFORMIN HCL 500 MG TABLET PO SCH ×2 (10:22→18:19)
[2019-03-20] MEDS: DIGOXIN 0.125 MG TABLET PO SCH (10:23)
[2019-03-20] MEDS: PANTOPRAZOLE SODIUM 40 MG TAB PO SCH (10:23)
--- NOTE | 2019-03-20 11:22 | NUR ---
03/20/2019 1122 This patient is sitting up in bed. No s/s of distress. She denies pain at this time.
[2019-03-20 11:32] VITALS: BP_SYST 139
--- NOTE | 2019-03-20 13:54 | NUR ---
DC PLANNING: RECEIVED A CALL FROM PATIENT'S GRANDSON (VITALIY DONAHUE) @ REGARDING DC PLANNING TO TCU AT [facility]. PER VITALIY, THEY WILL ONLY AGREE FOR PATIENT TO BE TRANSFERRED TO ACUTE REHAB [facility]ER [facility] OR [facility]. THEY ARE NOT AGREEABLE TO SNF. THEY WOULD PREFER PATIENT TO GO HOME THAN SNF. PER GRANDNATASHA, PATIENT LIVES WITH HER DAUGHTER (ELKE DONAHUE). CM ATTEMPTED TO CONTACT DAUGHTER (ELKE) @ TO DISCUSS DC PLAN AND VERIFY FOR 21/12 CAREGIVER AT HOME. HOWEVER, WAS UNAVAILABLE. CM LEFT VOICE MESSAGE. WAITING FOR CALL BACK. Addendum: 03/20/19 at 1650 by Lian Harris RN RECEIVED A CALL FROM TACHO (ADMISSIONS AT [facility]CU-[facility]) REGARDING REFERRAL. THEY ARE ACCEPTING PATIENT. ROOM NUMBER IS 102. RHYS EXPLAINED TO [facility] PREFERENCE. TACHO STATED SHE WILL BE OFF FOR THE NEXT FEW DAYS. ADVICE TO CALL AND SPEAK WITH RENÉ IF FAMILY CHANGE MIND OR AGREED TO TRANSFER TO TCU. CM TO FOLLOW UP.
[2019-03-20 15:22] VITALS: BP_SYST 156
[2019-03-20 16:00] VITALS: BP_SYST 134
[2019-03-20] MEDS ORDERED: MAGNESIUM CITRATE 300 ML ORAL SOLUTION PO ONE (17:00)
[2019-03-20] MEDS: cefTRIAXone 1 GM in D5W 50 ML IV SCH ×2 (17:00→18:00)
[2019-03-20] MEDS ORDERED: POLYETHYLENE GLYCOL 3350, 17 GM/ POWD.PACK PO ONE (18:00)
[2019-03-20] MEDS: CITALOPRAM HYDROBROMIDE 20 MG TABLET PO SCH (18:29)
[2019-03-20 20:00] VITALS: BP_SYST 134
--- NOTE | 2019-03-20 20:00 | NUR ---
Pt was received lying in bed fully awake, alert and oriented x4. Family members are visiting at the bedside. No acute distress noted at this time and no c/o pain or discomfort. Skin is warm and dry to touch. No signs or symptoms of hypoglycemia or hyperglycemia noted. Saline lock is without any signs of infiltration in LAC. Call light is with pt and bed alarm is on.
--- NOTE | 2019-03-20 22:06 | NUR ---
03/20/2019 1300 This patient is now eating. Room nurse unable to find a RN to sign on prior to the patient eating. BS was 204. Follow up planned to recheck prior to next meal and treat. She will be cleaned and assisted in turning upon completion of her meal.
--- NOTE | 2019-03-20 22:07 | NUR ---
03/20/2019 1600 The patient has complaints of constipation. dietary requested for prune juice. Also new orders to be placed to aide in the patient's relief.
--- NOTE | 2019-03-20 22:19 | NUR ---
Morphine 1mg was given IV for c/o 10/10 pain in both legs and rt arm with relief. Call light is with pt and bed alarm is on.
--- NOTE | 2019-03-20 22:22 | NUR ---
Accucheck 231 and skin remains warm and dry to touch. Humalog Insulin 4 units given SQ. Pt ate cut up fresh fruits brought in by family for HS snacks.
--- NOTE | 2019-03-21 00:12 | NUR ---
A female family member in a recliner at the bedside requested temp check on pt. The family member stated pt's face looked flushed earlier. Oral temp 98.5. Pt is resting quietly in bed and denies pain or discomfort. Call light is with pt and bed alarm is on.
--- NOTE | 2019-03-21 02:00 | NUR ---
Pt is sleeping in bed without any distress noted. Fall and safety precautions are in place. Call light is with pt and bed alarm is on. Female family member is sleeping in a recliner in pt's room.
--- NOTE | 2019-03-21 03:20 | NUR ---
Pt continues to sleep in bed without any distress noted. Fall and safety precautions are in place. Call light is with pt and bed alarm is on.
--- NOTE | 2019-03-21 05:00 | NUR ---
Pt is sleeping comfortably in bed. Fall and safety precautions are in place.
[2019-03-21 05:51] VITALS: BP_SYST 138
[2019-03-21] MEDS: INSULIN LISPRO SLIDING SCALE 100 UNITS/ML VIAL (humaLOG) SUBCUT PRN ×3 (06:15→17:05)
[2019-03-21] MEDS: PEG 400/HYPROMELLOSE/GLYCERIN 15 ML DROPS OP PRN ×2 (06:20→14:12)
--- NOTE | 2019-03-21 06:30 | NUR ---
Late Entry due to Pt Care: Pt is awake and not in any distress. All pt's needs were attended to. Will endorse to day shift nurse.
--- NOTE | 2019-03-21 07:30 | NUR ---
OPENING NOTES: RECEIVED PATIENT FROM SIX SIGMA BLACK TRAINER NURSE. PATIENT IS ASLEEP IN BED. NO SIGNS OF DISTRESS OR SHORTNESS OF BREATH NOTED. IV SITE IS PATENT WITH NO SIGNS OF INFILTRATION. PATIENT IS TOLERATING OXYGEN AT ROOM AIR. PATIENT IN STABLE CONDITION. SAFETY, FALL AND ASPIRATION PRECAUTIONS ARE IN PLACE. BED LOCKED IN LOWEST POSITION WITH CALL LIGHT IN REACH. WILL CONTINUE TO MONITOR PATIENT FOR ANY CHANGES.
[2019-03-21 08:17] VITALS: BP_SYST 117
[2019-03-21] MEDS: GABAPENTIN 100 MG CAPSULE PO SCH ×2 (08:37→14:12)
[2019-03-21] MEDS: RIVAROXABAN 10 MG TABLET PO SCH (08:37)
[2019-03-21] MEDS: PANTOPRAZOLE SODIUM 40 MG TAB PO SCH (08:38)
[2019-03-21] MEDS: metFORMIN HCL 500 MG TABLET PO SCH (08:38)
[2019-03-21] MEDS: DILTIAZEM HCL 240 MG CAP.SR.24H PO SCH (08:39)
[2019-03-21] MEDS: DOCUSATE SODIUM 250 MG CAPSULE PO SCH (08:39)
[2019-03-21] MEDS: DIGOXIN 0.125 MG TABLET PO SCH (08:40)
--- NOTE | 2019-03-21 08:55 | NUR ---
PHYSICAL THERAPY CO-SIGN The Physical Therapy Progress Notes documented by Nursing Specialist have been reviewed. Reviewed/Co-Signed by: Glenroy Gonzalez Documentation Done by: TED ZARAGOZA PTA Addendum: 03/21/19 at 0856 by Glenroy Gonzalez PT Amended: Links added.
[2019-03-21] MEDS ORDERED: POLYETHYLENE GLYCOL 3350, 17 GM/ POWD.PACK PO SCH (09:00)
[2019-03-21] MEDS: METHOCARBAMOL 500 MG TABLET PO SCH ×3 (09:10→16:54)
[2019-03-21] MEDS: ACETAMINOPHEN 325 MG TABLET PO PRN ×2 (09:11→16:55)
--- NOTE | 2019-03-21 10:05 | NUR ---
RN ROUNDS: PATIENT IS AWAKE AND ALERT x2. FAMILY AT BEDSIDE. PATIENT STATES SHE HAS PAIN BUT DOES NOT WANT A STRONG PAIN MEDICATION BECAUSE SHE DOES NOT WANT TO BE DROWSY. IV SITE IS PATENT WITH NO SIGNS OF INFILTRATION. PATIENT IN STABLE CONDITION. WILL CONTINUE TO MONITOR PATIENT FOR ANY CHANGES.
--- NOTE | 2019-03-21 10:55 | NUR ---
Discharge Planning: ISACC followed up with a message from Keily [phone] at [facility] patient was accepted, Keily was out for the day. Keily left instruction to call Randall at [phone]. ISACC spoke to Randall he stated he was not aware of the whole situation. Randall will contact Keily and call back. ISACC to follow up. Addendum: 03/21/19 at 1313 by Kandy Lan DP Randall called back from [facility] [phone] patient accepted to room 102A transport at 2-3pm. ISACC made CM aware. Addendum: 03/21/19 at 1323 by Kandy Lan DP Patient appealed DCISACC gave CM Alanna papers. Addendum: 03/21/19 at 1417 by Kandy SAWYER CM spoke to son he is going to stop appeal and would like patient to go to [facility] [phone] Rm 102B, transportation with [facility] ([phone]) 5:00pm P/U nurse aware patient packet taken to nurse station.
--- NOTE | 2019-03-21 12:15 | NUR ---
DC Planning: Received faxed appeal letter from [facility] case # [id number] , rhys confirmed with pt's travon Kwok # [phone] that he called Alanna last night to appeal the discharge/transfer pt to [facility]/TCU. Addendum: 03/21/19 at 1456 by Vish Jesus RN >> Per IVAN Nicole, receiving call from Alanna notification that the case has been withdrawn. RHYS phoned Sundar to confirmed the appeal cancellation. He requested pt transferring to TCU. He stated " all family members now agreed with the discharge to TCU today." -- MARIE Estrada made aware. Addendum: 03/21/19 at 1455 by Vish Jesus RN pt's travon Kwok phone # [phone].
--- NOTE | 2019-03-21 12:15 | NUR ---
RN ROUNDS: PATIENT IS SITTING AT THE SIDE OF HER BED IN A CHAIR EATING LUNCH. PATIENT DENIES ANY PAIN AT THE MOMENT. NO SIGNS OF DISTRESS OR SHORTNESS OF BREATH NOTED. PATIENT IN STABLE CONDITION. WILL CONTINUE TO MONITOR PATIENT FOR ANY CHANGES.
[2019-03-21 12:25] VITALS: BP_SYST 133
--- NOTE | 2019-03-21 13:20 | NUR ---
Dietitian Recommendations * Recommend [facility] diet w/ Glucerna BID (ONS provides 440 kcal/day, 20 gm protein/day) [address] Please refer to Nutrition Assessment for details. Addendum: 03/21/19 at [address] Amended: Links added.
--- NOTE | 2019-03-21 14:37 | NUR ---
RN ROUNDS: PATIENT IS AWAKE AND ALERT x3 AND SITTING IN A CHAIR NEXT TO THE BED. PATIENT DENIES ANY PAIN AT THE MOMENT. NO SIGNS OF DISTRESS OR SHORTNESS OF BREATH NOTED. PATIENT IN STABLE CONDITION. WILL CONTINUE TO MONITOR PATIENT FOR ANY CHANGES.
--- NOTE | 2019-03-21 14:45 | NUR ---
Social Service/Discharge Planning Note: UNIT TECHNICIAN received a call from Liane at [facility] stating that pt's family had called and has withdrawn their appeal and that the case has been closed. . Call back number for Liane ([phone]). UNIT TECHNICIAN has updated DC operations planner and CM.
[2019-03-21 16:00] VITALS: BP_SYST 126
--- NOTE | 2019-03-21 16:11 | NUR ---
RN ROUNDS: PATIENT IS ASLEEP IN BED. NO SIGNS OF DISTRESS OR SHORTNESS OF BREATH NOTED. PATIENT IN STABLE CONDITION. WILL CONTINUE TO MONITOR PATIENT FOR ANY CHANGES.
--- NOTE | 2019-03-21 16:21 | NUR ---
REPORT: GAVE REPORT TO JOSÉ MIGUEL AT [facility].
[2019-03-21 16:22] VITALS: BP_SYST 135
[2019-03-21] MEDS: CITALOPRAM HYDROBROMIDE 20 MG TABLET PO SCH (16:54)
--- NOTE | 2019-03-21 18:21 | NUR ---
PT TRANSFERRED Report given to JOSÉ MIGUEL at [facility]. Transfer packet with Transfer Orders and Medication Reconciliation form given to EMT with report. Exitcare provided. [facility] ID band removed, replaced with ID band with pt's name and . IV catheter, intact with clean and dry dressing. All belongings sent with patient. Patient left floor via gurney escorted by EMT in no distress.
--- NOTE | 2019-03-22 12:14 | NUR ---
PHYSICAL THERAPY CO-SIGN The Physical Therapy Progress Notes documented by Identification Officer have been reviewed. Reviewed/Co-Signed by: Glenroy Gonzalez Documentation Done by: Tod Jones PTA Addendum: 03/22/19 at 1215 by Glenroy Gonzalez PT Amended: Links added.
== END 2019-03-21 18:21 | disposition short-term general hospital (02) | DRG 392 ==
LOC: SED 06:44 → STU 11:37 → SMU 03-18 14:47
PROVIDERS: ADMIT Internal Medicine; ATTEND Internal Medicine
DX: R10.31 Right lower quadrant pain (principal); I48.20 Chronic atrial fibrillation, unspecified; I10 Essential (primary) hypertension; K21.9 Gastro-esophageal reflux disease without esophagitis; G40.909 Epilepsy, unspecified, not intractable, without status epilepticus; M17.12 Unilateral primary osteoarthritis, left knee; M17.10 Unilateral primary osteoarthritis, unspecified knee; E11.40 Type 2 diabetes mellitus with diabetic neuropathy, unspecified; K56.41 Fecal impaction; T50.905A Adverse effect of unspecified drugs, medicaments and biological substances, initial encounter; Z79.899 Other long term (current) drug therapy; Y92.89 Other specified places as the place of occurrence of the external cause
CPT/HCPCS: 36415; 71045; 72170-TC; 73502; 73564; 80048; 80053; 80162-TC; 81000-TC; 82962; 83605; 84484; 85025; 85610-TC; 85651-TC; 85730-TC; 87040-TC; 87086; 93005; 93923; 93970; 96361; 96374; 97110-GP; 97116-GP; 97530-GP; 99285; G0378; J0696; J2270; J7060